=== PATIENT | male | born 1945 | race Caucasian/White ===

== ENCOUNTER 2017-02-15 20:57 | Inpatient (IN) | payer MEDICARE, OTHER ==
[~2017-02-15] VITALS: Ht 172.7 cm; Wt 87.0 kg
[~2017-02-15 20:57] MED LIST: ASPI81TA82 PO; DIAZ10TA PO; DOCU1CAP39 PO; ISOS30; LANTUS2P SC; LASI20TA PO; LISI-366 PO; METO100T PO; NITR0.4S SL; NOVOINJ SQ; OXYC5 PO; REME30TA PO; ROSU40 PO
[2017-02-15 21:10] VITALS: BP 152/74; PULSE 100; RESP 18; TEMP 98.5; O2SAT 96
--- NOTE | 2017-02-15 21:22 | PD ---
HPI Chief Complaint: GI Complaint Time Seen by Provider: 21:15 Travel History International Travel<30 days: No Contact w/Intl Traveler<30days: No Traveled to known affect area: No History of Present Illness HPI 71-year-old male presents the emergency department via ambulance with several day history of GI complaints including watery foul-smelling diarrhea, nausea and vomiting, and generalized abdominal pain. Patient has a history of hepatitis C, insulin-dependent diabetes, and "renal disease", as well as significant cardiac history in the past. Patient states he felt somewhat feverish this morning. He has increasing weakness and generalized malaise through the day today. Patient states he stopped taking his insulin yesterday as he has not been eating or drinking any significant amounts. He denies upper respiratory symptoms other than sore throat. He denies chest pain or shortness of breath. He states the last time he vomited was approximately 1 PM this afternoon. Patient states he cannot remember urinating in the past 2 days. Patient also reports a fall 10 days ago onto the sidewalk which he feels may be related to his current abdominal discomfort. He is allergic to gabapentin and lisinopril. 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) Asthma: Yes Autoimmune Disease: No Anxiety: Yes Depression: Yes Heart Rhythm Problems: No Cancer: No Cardiovascular Problems: Yes High Cholesterol: Yes Chemotherapy: No Chest Pain: Yes Congestive Heart Failure: Yes Diabetes: Yes Diminished Hearing: No Diverticulitis: Yes Endocrine: Yes Gastrointestinal Disorders: Yes GERD: No Genitourinary: Yes (RENAL INSUFF) Hepatitis: Yes (C) Hiatal Hernia: No Hypertension: Yes Immune Disorder: No Kidney Stones: Yes Musculoskeletal: Yes (CHRONIC BACK PAIN) Neurologic: Yes Psychiatric: Yes (PTSD) Reproductive: Yes (IRRECTILE DISFUNTION) Respiratory: Yes Radiation Therapy: No Renal Failure: No Past Surgical History Abdominal Surgery: No Cardiac Surgery: Yes (CABG 5 VESSEL 2000) Coronary Artery Bypass Graft: Yes (2000) Ear Surgery: No Endocrine Surgery: No Eye Surgery: No Genitourinary Surgery: No Gynecologic Surgery: No Neurologic Surgery: Yes (RT ARM) Oral Surgery: No Thoracic Surgery: Yes Other Surgery: Yes Social History Alcohol Use: No Tobacco Use: No Substance Use: No Allergies-Medications (Allergen,Severity, Reaction): Coded Allergies: Gabapentin (Verified Adverse Reaction, Intermediate, Cramping, 02/15/17) 10 yrs ago, Lisinopril (Verified Adverse Reaction, Intermediate, Cramping, 02/15/17) Reported Meds & Prescriptions Reported Meds & Active Scripts Active Reported Oxycodone Hydrochloride (Oxycodone HCl) 5 Mg Cap 5 Mg PO Q8HR Metoprolol Tartrate 100 Mg Tab 100 Mg PO BID Losartan (Losartan Potassium) 100 Mg Tab 100 Mg PO DAILY Ketoconazole Topical 2% Cream 1 Applic TOPICAL DAILY Lantus Inj (Insulin Glargine) 1,000 Unit/10 Ml Vial 40 Units SQ BID Novolog Flexpen Inj (Insulin Aspart) 300 Unit/3 Ml Pen 5 Units SQ DIRECTED Imiquimod Topical (Imiquimod) 5% Cream 1 Applic TOPICAL 3 TIMES PER WEEK Eq Gentle Lubricant (Hypromellose (Ophth)) 0.3 % Mike 1 Drop EACH EYE Q6HR Furosemide 20 Mg Tab 20 Mg PO DAILY Ergocalciferol 50,000 Unit Cap 50,000 Units PO Q30D Diphenhydramine (Diphenhydramine HCl) 25 Mg Cap 25 Mg PO HS PRN Aspirin 81 (Aspirin) 81 Mg Tabdr 81 Mg PO DAILY Proair Hfa 8.5 GM Inh (Albuterol Sulfate) 90 Mcg/Act Aer 2 Puff INH Q6H PRN 108 mcg/actuation Tanzeum 4-Pack Inj (Albiglutide) 30 Mg Pfpen 30 Mg SQ Q7D Review of Systems Except as stated in HPI: all other systems reviewed are Neg General / Constitutional: Positive: Fever (reported this morning.), Chills Eyes: No: Visual changes HENT: Positive: Sore Throat, No: Headaches, Vertigo, Lightheadedness, Rhinitis , Rhinorrhea, Congestion, Nosebleed, Neck Stiffness, Neck Pain, Gingival Bleeding, Dental Difficulties, Ear Discharge, Earache Cardiovascular: No: Chest Pain or Discomfort, Palpitations, Irregular Rhythm, Tachycardia, Diaphoresis, Edema Respiratory: No: Cough, Shortness of Breath, Wheezing Gastrointestinal: Positive: Nausea, Vomiting, Diarrhea, Abdominal Pain (see history present illness.), Loss of Appetite Genitourinary: Positive: Decreased Urinary Output, No: Dysuria Musculoskeletal: No: Pain Skin: No Rash Neurologic: Positive: Weakness (generalized.), No: Dizziness, Syncope, Focal Abnormalities, Coordination Problem Psychiatric: No: Depression Endocrine: No: Polydipsia Hematologic/Lymphatic: No: Easy Bruising Physical Exam Narrative GENERAL: Patient appears in no acute distress. He is alert and oriented 3. SKIN: Warm and dry. Normal color. Poor turgor with tenting present. No icterus present. HEAD: Atraumatic. Normocephalic. EYES: Pupils equal and round. No scleral icterus. No injection or drainage. ENT: No nasal bleeding or discharge. Mucous membranes pink and somewhat dry. Pharynx appears normal with no significant erythema or injection present. NECK: Trachea midline. No JVD. Supple and nontender. CARDIOVASCULAR: Borderline tachycardic rate and normal rhythm. RESPIRATORY: No accessory muscle use. Clear to auscultation. Breath sounds equal bilaterally. GASTROINTESTINAL: Abdomen soft, moderate generalized tenderness, nondistended. No guarding or point tenderness. Hepatic and splenic margins not palpable. MUSCULOSKELETAL: Extremities without clubbing, cyanosis, or edema. No obvious deformities. NEUROLOGICAL: Awake and alert. No obvious cranial nerve deficits. Motor grossly within normal limits. Five out of 5 muscle strength in the arms and legs. Normal speech. PSYCHIATRIC: Appropriate mood and affect; insight and judgment normal. Data Data Last Documented VS Vital Signs Date Time Temp Pulse Resp B/P Pulse Ox O2 Delivery O2 Flow Rate FiO2 02/15/17 23:12 95 16 124/80 95 Room Air 02/15/17 21:10 98.5 Orders Complete Blood Count With Diff (02/15/17 21:22) Comprehensive Metabolic Panel (02/15/17 21:22) Lipase (02/15/17 21:22) Lactic Acid (02/15/17 21:22) Prothrombin Time / Inr (Pt) (02/15/17 21:22) Act Partial Throm Time (Ptt) (02/15/17 21:22) Urinalysis - C+S If Indicated (02/15/17 21:22) Ct Abd/Pel W/O Iv Contrast (02/15/17 21:22) Iv Access Insert/Monitor (02/15/17 21:22) Ecg Monitoring (02/15/17 21:22) Oximetry (02/15/17 21:22) NPO (02/15/17 21:22) Ondansetron Inj (Zofran Inj) (02/15/17 21:30) Sodium Chlor 0.9% 1000 Ml Inj (Ns 1000 M (02/15/17 21:22) Sodium Chloride 0.9% Flush (Ns Flush) (02/15/17 21:30) Ckmb (Isoenzyme) Profile (02/15/17 21:22) Magnesium (Mg) (02/15/17 21:22) Troponin I (02/15/17 21:22) Chest, Single Ap (02/15/17 21:22) Oral Contrast - Adult (02/15/17 21:27) Diatrizoate Liq ( Gastroview Liq) (02/15/17 22:09) Ondansetron Inj (Zofran Inj) (02/15/17 23:30) Piperacil-Tazo 3.375 Gm Premix (Zosyn 3. (02/16/17 00:30) Admit Order (Ed Use Only) (02/16/17 00:41) Labs Laboratory Tests Test 02/15/17 02/15/17 21:00 21:46 White Blood Count 6.5 TH/MM3 Red Blood Count 4.16 MIL/MM3 Hemoglobin 12.7 GM/DL Hematocrit 37.8 % Mean Corpuscular Volume 90.8 FL Mean Corpuscular Hemoglobin 30.6 PG Mean Corpuscular Hemoglobin 33.7 % Concent Red Cell Distribution Width 13.1 % Platelet Count 115 TH/MM3 Mean Platelet Volume 9.8 FL Neutrophils (%) (Auto) 70.7 % Lymphocytes (%) (Auto) 16.4 % Monocytes (%) (Auto) 12.8 % Eosinophils (%) (Auto) 0.0 % Basophils (%) (Auto) 0.1 % Neutrophils # (Auto) 4.6 TH/MM3 Lymphocytes # (Auto) 1.1 TH/MM3 Monocytes # (Auto) 0.8 TH/MM3 Eosinophils # (Auto) 0.0 TH/MM3 Basophils # (Auto) 0.0 TH/MM3 CBC Comment DIFF FINAL Differential Comment Prothrombin Time 11.2 SEC Prothromb Time International 1.0 RATIO Ratio Activated Partial 28.2 SEC Thromboplast Time Sodium Level 135 MEQ/L Potassium Level 4.1 MEQ/L Chloride Level 100 MEQ/L Carbon Dioxide Level 22.8 MEQ/L Anion Gap 12 MEQ/L Blood Urea Nitrogen 33 MG/DL Creatinine 1.90 MG/DL Estimat Glomerular Filtration 35 ML/MIN Rate Random Glucose 268 MG/DL Calcium Level 8.3 MG/DL Magnesium Level 1.8 MG/DL Total Bilirubin 0.8 MG/DL Aspartate Amino Transf 23 U/L (AST/SGOT) Alanine Aminotransferase 18 U/L (ALT/SGPT) Alkaline Phosphatase 108 U/L Total Creatine Kinase 81 U/L Troponin I 0.04 NG/ML Total Protein 7.6 GM/DL Albumin 3.3 GM/DL Lipase 80 U/L Lactic Acid Level 1.9 mmol/L MDM Medical Decision Making Medical Screen Exam Complete: Yes Emergency Medical Condition: Yes Differential Diagnosis Gastroenteritis. Dehydration. Renal insufficiency. Hepatic issue. Nausea and vomiting. Diarrhea. Narrative Course Patient appears medically stable at time of exam. EKG shows sinus rhythm with occasional super ventricular premature complexes. This is reviewed with Dr. Maddox. Labs ordered include a CBC, CMP, lactic acid, cardiac profile, and urinalysis. IV access is obtained patient is given 2 L normal saline bolus. Abdominal CT is ordered without IV contrast is ordered. Chest x-ray shows diffuse infiltrates in the left lower lobe per radiologist. CBC shows no significant leukocytosis, but mild anemia. 2300 hrs, care of the patient is turned over to Dr. Maddox for final disposition. Condition: Stable Graeme Dalal Feb 15, 2017 21:22
[2017-02-15] MEDS ORDERED: ONDANSETRON HCL 4 MG/2 ML VIAL IVP ONE (21:30)
[2017-02-15] MEDS ORDERED: LOSA100T PO (21:55)
[2017-02-15] MEDS ORDERED: KETO2CRE TOPICAL (21:55)
[2017-02-15] MEDS ORDERED: LANTUS2P SQ (21:55)
[2017-02-15] MEDS ORDERED: [UNRECOGNIZED DRUG - OTHER] EACH EYE (21:55)
[2017-02-15] MEDS ORDERED: ALBUAER3 INH (21:55)
[2017-02-15] MEDS ORDERED: FURO20TA PO (21:55)
[2017-02-15] MEDS ORDERED: ERGO1CAP30 PO (21:55)
[2017-02-15] MEDS ORDERED: NOVOINJ3 SQ (21:55)
[2017-02-15] MEDS ORDERED: OXYC1CAP8 PO (21:55)
[2017-02-15] MEDS ORDERED: ASPI-110 PO (21:55)
[2017-02-15] MEDS ORDERED: METO100T PO (21:55)
[2017-02-15] MEDS ORDERED: ALBI1INJ SQ (21:55)
[2017-02-15] MEDS ORDERED: DIPH25CA PO (21:55)
[2017-02-15] MEDS ORDERED: IMIQ5CRE9 TOPICAL (21:55)
[2017-02-15] MEDS: SODIUM CHLORIDE 0.9% FLUSH 10 ML FLUSH IV FLUSH PRN ×2 (21:58→23:36)
[2017-02-15] MEDS: SODIUM CHLOR 0.9% 1000 ML INJ 1,000 ML IV SCH ×2 (21:58→22:42)
[2017-02-15 22:09] LABS: AUTOMATED NEUTROPHIL # 4.6 TH/MM3 (1.8-7.7); BASOPHIL % 0.1 % (0.0-2.0); HEMATOCRIT 37.8 % (39.0-51.0); HEMO FLAGS DIFF FINAL; LYMPH % 16.4 % (9.0-44.0); LYMPHOCYTE # 1.1 TH/MM3 (1.0-4.8); MEAN CELL VOLUME 90.8 FL (80.0-100.0); MEAN CORPUSCULAR HEMOGLOBIN 30.6 PG (27.0-34.0); MEAN CORPUSCULAR HGB CONC 33.7 % (32.0-36.0); MONO % 12.8 % (0.0-8.0); NEUT % 70.7 % (16.0-70.0); PLATELET COUNT 115 TH/MM3 (150-450); RED BLOOD COUNT 4.16 MIL/MM3 (4.50-5.90); RED CELL DISTRIBUTION WIDTH 13.1 % (11.6-17.2); WHITE BLOOD COUNT 6.5 TH/MM3 (4.0-11.0)
[2017-02-15] MEDS ORDERED: DIATRIZOATE MEGLUM/DIATRIZOATE SOD 9 ML CUP ONE (22:09)
[2017-02-15 22:29] LABS: APTT (PATIENT) 28.2 SEC (24.3-30.1); PROTHROMBIN TIME - PATIENT 11.2 SEC (9.8-11.6)
--- NOTE | 2017-02-15 22:34 | RADRPT ---
EXAM DATE/TIME: 02/15/2017 21:44 [facility] COMPARISON: CHEST SINGLE AP, September 07, 2014, 9:45. INDICATIONS : Chest pain. MEDICAL HISTORY : Cardiovascular disease. SURGICAL HISTORY : CABG. ENCOUNTER: Initial ACUITY: 1 day PAIN SCORE: 7/10 LOCATION: Bilateral chest FINDINGS: Ill-defined opacity in the left lower lung and loss of delineation of the lateral one third of the le ft hemidiaphragm suggests consolidative infiltrate. The right lung is clear. Evidence of prior medi an sternotomy with intact sternal wire sutures. CONCLUSION: Probable consolidative infiltrate lower lateral left lung. Anjum Lincoln MD on February 15, 2017 at 22:32 Board Certified Radiologist. This report was verified electronically.
[2017-02-15 22:41] LABS: ALT (GPT) 18 U/L (12-78); ANION GAP 12 MEQ/L (5-15); AST (GOT) 23 U/L (15-37); BICARBONATE 22.8 MEQ/L (21.0-32.0); BLOOD UREA NITROGEN 33 MG/DL (7-18); CHLORIDE 100 MEQ/L (98-107); GLOMERULAR FILTRATION RATE 35 ML/MIN (>89); MAGNESIUM 1.8 MG/DL (1.5-2.5); POTASSIUM 4.1 MEQ/L (3.5-5.1); SODIUM (NA) 135 MEQ/L (136-145)
[2017-02-15 22:45] LABS: ALKALINE PHOSPHATASE 108 U/L (45-117); TOTAL BILIRUBIN ADULT 0.8 MG/DL (0.2-1.0)
[2017-02-15 23:10] VITALS: RESP 18; O2SAT 97
[2017-02-15 23:12] VITALS: BP 124/80; PULSE 95; RESP 16; O2SAT 95
[2017-02-15 23:17] LABS: CREATINE KINASE 81 U/L (39-308)
[2017-02-15] MEDS ORDERED: ONDANSETRON HCL 4 MG/2 ML VIAL IV PUSH ONE (23:30)
--- NOTE | 2017-02-16 00:03 | RADRPT ---
EXAM DATE/TIME: 02/15/2017 23:37 [facility] COMPARISON: No previous studies available for comparison. INDICATIONS : Diffuse abdominal pain following fall 10 days ago. Vomiting today. ORAL CONTRAST: Prescribed oral contrast ingested. RADIATION DOSE: 12.40 CTDIvol (mGy) MEDICAL HISTORY : Congestive heart failure. Hypertension. Hepatitis C.Diabetes. Renal disease. SURGICAL HISTORY : CABG ENCOUNTER: Initial ACUITY: 1 week PAIN SCALE: 6/10 LOCATION: Bilateral abdomen TECHNIQUE: Volumetric scanning of the abdomen and pelvis was performed. Using automated exposure control and ad justment of the mA and/or kV according to patient size, radiation dose was kept as low as reasonably achievable to obtain optimal diagnostic quality images. FINDINGS: LOWER LUNGS: There is respiratory motion artifact. Atelectasis is present bilaterally. There is coronary artery ca lcification. LIVER: The liver demonstrates a mildly nodular contour. Density is normal and no lesion is seen. There is n o dilation of the biliary tree. No calcified gallstones. SPLEEN: Mildly enlarged measuring 13.1 cm in length. PANCREAS: Within normal limits. KIDNEYS: Normal in size and shape. There is no mass, stone, or hydronephrosis. ADRENAL GLANDS: Within normal limits. VASCULAR: There is no aortic aneurysm. There is severe atherosclerotic disease. BOWEL/MESENTERY: There is thickening of the duodenal bulb and proximal second portion of the duodenum. No perienteric inflammation is appreciated. The remaining small bowel and colon demonstrates no acute finding. There is no free intraperitoneal air or fluid. ABDOMINAL WALL: Within normal limits. RETROPERITONEUM: There is no lymphadenopathy. BLADDER: No wall thickening or mass. REPRODUCTIVE: Within normal limits. INGUINAL: There is no lymphadenopathy or hernia. MUSCULOSKELETAL: Patient is post median sternotomy. There are degenerative changes of the lumbar spine. CONCLUSION: 1. Wall thickening of the duodenal bulb and second portion of the duodenum without significant perien teric inflammation appreciated. Although nonspecific this finding could indicate inflammation of the duodenum. 2. Liver contour suspicious for cirrhosis. There is also mild splenomegaly. 3. Severe atherosclerotic disease and coronary artery calcification. Jorge Sahu MD on February 15, 2017 at 23:57 Board Certified Radiologist. This report was verified electronically.
[2017-02-16] MEDS ORDERED: PIPERACIL-TAZO 3.375 GM PREMIX 50 ML IV ONE (00:30)
[2017-02-16] MEDS ORDERED: ALBUTEROL SULFATE 90 MCG/ACT HFA 18 GM INHALER INH PRN (01:00)
[2017-02-16] MEDS ORDERED: SODIUM CHLORIDE 0.9% FLUSH 10 ML FLUSH IV FLUSH PRN (01:00)
[2017-02-16] MEDS ORDERED: ACETAMINOPHEN 325 MG TAB PO PRN (01:00)
[2017-02-16] MEDS ORDERED: ACETAMINOPHEN/HYDROcodone 325 MG/5 MG TAB PO PRN (01:00)
[2017-02-16] MEDS ORDERED: Vancomycin Consult Pharmacy 1 EA OTHER SCH (01:00)
[2017-02-16] MEDS ORDERED: BISACODYL 10 MG SUPP RECTAL PRN (01:00)
[2017-02-16] MEDS: SODIUM CHLOR 0.9% 1000 ML INJ 1,000 ML IV SCH ×3 (01:03→22:04)
--- NOTE | 2017-02-16 01:38 | PD ---
Data Data Last Documented VS Vital Signs Date Time Temp Pulse Resp B/P Pulse Ox O2 Delivery O2 Flow Rate FiO2 02/15/17 23:12 95 16 124/80 95 Room Air 02/15/17 21:10 98.5 Orders Complete Blood Count With Diff (02/15/17 21:22) Comprehensive Metabolic Panel (02/15/17 21:22) Lipase (02/15/17 21:22) Lactic Acid (02/15/17 21:22) Prothrombin Time / Inr (Pt) (02/15/17 21:22) Act Partial Throm Time (Ptt) (02/15/17 21:22) Urinalysis - C+S If Indicated (02/15/17 21:22) Ct Abd/Pel W/O Iv Contrast (02/15/17 21:22) Iv Access Insert/Monitor (02/15/17 21:22) Ecg Monitoring (02/15/17 21:22) Oximetry (02/15/17 21:22) NPO (02/15/17 21:22) Ondansetron Inj (Zofran Inj) (02/15/17 21:30) Sodium Chlor 0.9% 1000 Ml Inj (Ns 1000 M (02/15/17 21:22) Sodium Chloride 0.9% Flush (Ns Flush) (02/15/17 21:30) Ckmb (Isoenzyme) Profile (02/15/17 21:22) Magnesium (Mg) (02/15/17 21:22) Troponin I (02/15/17 21:22) Chest, Single Ap (02/15/17 21:22) Oral Contrast - Adult (02/15/17 21:27) Diatrizoate Liq ( Gastroview Liq) (02/15/17 22:09) Ondansetron Inj (Zofran Inj) (02/15/17 23:30) Piperacil-Tazo 3.375 Gm Premix (Zosyn 3. (02/16/17 00:30) Admit Order (Ed Use Only) (02/16/17 00:41) Labs Laboratory Tests Test 02/15/17 02/15/17 21:00 21:46 White Blood Count 6.5 TH/MM3 Red Blood Count 4.16 MIL/MM3 Hemoglobin 12.7 GM/DL Hematocrit 37.8 % Mean Corpuscular Volume 90.8 FL Mean Corpuscular Hemoglobin 30.6 PG Mean Corpuscular Hemoglobin 33.7 % Concent Red Cell Distribution Width 13.1 % Platelet Count 115 TH/MM3 Mean Platelet Volume 9.8 FL Neutrophils (%) (Auto) 70.7 % Lymphocytes (%) (Auto) 16.4 % Monocytes (%) (Auto) 12.8 % Eosinophils (%) (Auto) 0.0 % Basophils (%) (Auto) 0.1 % Neutrophils # (Auto) 4.6 TH/MM3 Lymphocytes # (Auto) 1.1 TH/MM3 Monocytes # (Auto) 0.8 TH/MM3 Eosinophils # (Auto) 0.0 TH/MM3 Basophils # (Auto) 0.0 TH/MM3 CBC Comment DIFF FINAL Differential Comment Prothrombin Time 11.2 SEC Prothromb Time International 1.0 RATIO Ratio Activated Partial 28.2 SEC Thromboplast Time Sodium Level 135 MEQ/L Potassium Level 4.1 MEQ/L Chloride Level 100 MEQ/L Carbon Dioxide Level 22.8 MEQ/L Anion Gap 12 MEQ/L Blood Urea Nitrogen 33 MG/DL Creatinine 1.90 MG/DL Estimat Glomerular Filtration 35 ML/MIN Rate Random Glucose 268 MG/DL Calcium Level 8.3 MG/DL Magnesium Level 1.8 MG/DL Total Bilirubin 0.8 MG/DL Aspartate Amino Transf 23 U/L (AST/SGOT) Alanine Aminotransferase 18 U/L (ALT/SGPT) Alkaline Phosphatase 108 U/L Total Creatine Kinase 81 U/L Troponin I 0.04 NG/ML Total Protein 7.6 GM/DL Albumin 3.3 GM/DL Lipase 80 U/L Lactic Acid Level 1.9 mmol/L [facility] Medical Record Reviewed: Yes Supervised Visit with VASU: Yes Narrative Course I, Dr. Maddox, have reviewed the advance practice practitioner's documentation and am in agreement, met with the patient face to face, made the diagnosis, and the medical decision making was done by me. *My assessment and Findings: CBC & BMP Diagram 02/15/17 21:00 LA 1.9 LFTs normal Lipase 3.3 Tn 0.04 INR 1.0 Last 24 hours Impressions Chest X-Ray 02/15/172121 Signed Impressions: Service Date/Time: Wednesday, February 15, 2017 21:44 - CONCLUSION: Probable consolidative infiltrate lower lateral left lung. Anjum Lincoln MD Abdomen/Pelvis CT 02/15/172121 Signed Impressions: Service Date/Time: Wednesday, February 15, 2017 23:37 - CONCLUSION: 1. Wall thickening of the duodenal bulb and second portion of the duodenum without significant perienteric inflammation appreciated. Although nonspecific this finding could indicate inflammation of the duodenum. 2. Liver contour suspicious for cirrhosis. There is also mild splenomegaly. 3. Severe atherosclerotic disease and coronary artery calcification. Jorge Sahu MD Admission for IV antibiotics and IV fluids. Discussed with Dr. Mars. Patient resting comfortably at time of reassessment at approx 1230AM prior to admission. Zosyn started. Diagnosis Primary Impression: Duodenitis Additional Impression: PNA (pneumonia) Qualified Code: J18.1 - Pneumonia of left lower lobe due to infectious organism Admitting Information Admitting Physician Requests: Admit Condition: Stable Suhail Maddox MD Feb 16, 2017 01:38
[2017-02-16] MEDS ORDERED: VANCOMYCIN INJ 1,400 MG in SODIUM CHLORID 0.9% 500 ML INJ 500 ML IV SCH (02:00)
--- NOTE | 2017-02-16 03:15 | HHI.HP ---
HPI Service [facility] Primary Care Physician [facility] Admission Diagnosis Duodenitis; L PNA Diagnoses: (1) Duodenitis Diagnosis: Principal (2) PNA (pneumonia) Diagnosis: Principal (3) COPD (chronic obstructive pulmonary disease) Diagnosis: Principal (4) Renal insufficiency Diagnosis: Principal (5) DM (diabetes mellitus) Diagnosis: Principal Travel History International Travel<30 Days: No Contact w/Intl Traveler <30 Da: No Traveled to Known Affected Are: No History of Present Illness This is a 71-year-old male with a PMH of Anxiety, Depression, HTN, Hyperlipidemia, Hepatitis C, CHF (Echo 05/21/12 w/ EF 50-55%), COPD and DM who presents to the ER with complaints of abdominal pain, nausea, vomiting and nonbloody diarrhea x2 days. Decreased PO intake secondary to symptoms. Reports subjective fevers/chills. Denies sick contacts. On arrival, BP 152/74 , HR 100, O2 sat 96% on RA, Afebrile. WBC normal. Platelets 115, previously 149 on 09/07/14. Creatinine 1.90, previously 1.9 and 09/07/14. Lactic Acid 1.9. LFTs normal. Troponin 0.04. INR 1.0. CXR with likely consolidation left lower lobe. CT Abd/Pelvis w/ wall thickening of duodenal bulb and second portion of duodenum, cirrhosis, mild splenomegaly, coronary artery calcification. S/p Zosyn IV in ER. Review of Systems Except as stated in HPI: all other systems reviewed are Neg ROS: 14 point review of systems otherwise negative. Past Family Social History Past Medical History PMH: Anxiety, Depression, HTN, Hyperlipidemia, Hepatitis C, CHF (Echo 05/21/12 w / EF 50-55%), COPD and DM Past Surgical History PAST SURGICAL HISTORY: CABG, Right Arm Surgery Allergies: Coded Allergies: Gabapentin (Verified Adverse Reaction, Intermediate, Cramping, 02/15/17) 10 yrs ago, Lisinopril (Verified Adverse Reaction, Intermediate, Cramping, 02/15/17) Family History PAST FAMILY HISTORY: Reviewed. No h/o DM or CAD Social History PAST SOCIAL HISTORY: Negative for alcohol, tobacco or drugs. Physical Exam Vital Signs Vital Signs Date Time Temp Pulse Resp B/P Pulse Ox O2 Delivery O2 Flow Rate FiO2 02/15/17 23:12 95 16 124/80 95 Room Air 02/15/17 23:10 18 97 Room Air 02/15/17 21:10 98.5 100 18 152/74 96 Physical Exam PE: GENERAL: Elderly white male in no acute distress. HEENT: PERRLA, EOMI. No scleral icterus or conjunctival pallor. No lid lag or facial droop. CARDIOVASCULAR: Regular rate and rhythm. No obvious murmurs to auscultation. No chest tenderness to palpation. RESPIRATORY: No obvious rhonchi or wheezing. Clear to auscultation. Breath sounds equal bilaterally. GASTROINTESTINAL: Abdomen soft, mild generalized tenderness to palpation, nondistended. BS normal. MUSCULOSKELETAL: Extremities without clubbing, cyanosis, or edema. No obvious deformities. NEUROLOGICAL: Awake, alert and oriented x4. No focal neurologic deficits. Moving both upper and lower extremities spontaneously. Laboratory Laboratory Tests Test 02/15/17 02/15/17 21:00 21:46 White Blood Count 6.5 Red Blood Count 4.16 Hemoglobin 12.7 Hematocrit 37.8 Mean Corpuscular Volume 90.8 Mean Corpuscular Hemoglobin 30.6 Mean Corpuscular Hemoglobin 33.7 Concent Red Cell Distribution Width 13.1 Platelet Count 115 Mean Platelet Volume 9.8 Neutrophils (%) (Auto) 70.7 Lymphocytes (%) (Auto) 16.4 Monocytes (%) (Auto) 12.8 Eosinophils (%) (Auto) 0.0 Basophils (%) (Auto) 0.1 Neutrophils # (Auto) 4.6 Lymphocytes # (Auto) 1.1 Monocytes # (Auto) 0.8 Eosinophils # (Auto) 0.0 Basophils # (Auto) 0.0 CBC Comment DIFF FINAL Differential Comment Prothrombin Time 11.2 Prothromb Time International 1.0 Ratio Activated Partial 28.2 Thromboplast Time Sodium Level 135 Potassium Level 4.1 Chloride Level 100 Carbon Dioxide Level 22.8 Anion Gap 12 Blood Urea Nitrogen 33 Creatinine 1.90 Estimat Glomerular Filtration 35 Rate Random Glucose 268 Calcium Level 8.3 Magnesium Level 1.8 Total Bilirubin 0.8 Aspartate Amino Transf 23 (AST/SGOT) Alanine Aminotransferase 18 (ALT/SGPT) Alkaline Phosphatase 108 Total Creatine Kinase 81 Troponin I 0.04 Total Protein 7.6 Albumin 3.3 Lipase 80 Lactic Acid Level 1.9 Result Diagram: 02/15/17209902/15/172099 Assessment and Plan Problem List: (1) Duodenitis ICD Code: K29.80 Status: Acute (2) PNA (pneumonia) ICD Code: J18.9 Status: Acute (3) COPD (chronic obstructive pulmonary disease) ICD Code: J44.9 Status: Acute (4) Renal insufficiency ICD Code: N28.9 Status: Acute (5) DM (diabetes mellitus) ICD Code: E11.9 Status: Acute Assessment and Plan A/P: 1. Duodenitis: acute onset of abdominal pain, nausea/vomiting/diarrhea x2 days w/ decreased PO intake. CT Abd/Pelvis w/ wall thickening of duodenal bald and second portion of duodenum, images reviewed by me. S/p Zosyn and Zofran in ER w/ some improvement. Continue w/ IV Abx, analgesics/antiemetics as needed. IVF for hydration. Diet as tolerated. 2. PNA: CXR w/ LLL infiltrate, images reviewed by me. Continue w/ IV Abx, DuoNeb prn. 3. COPD: Chronic Respiratory Failure. Stable. DuoNeb prn 4. Renal Insufficiency: Chronic. Creatinine 1.90, previously 1.98 on . IVF, repeat labs in a.m. 5. DM: Sliding scale Accu-Cheks. Hold home Lantus until taking adequate PO. Check Hgb A1c. 6. DVT Prophylaxis: SCD/Teds. 7. Social work for d/c planning as needed. 8. Case discussed w/ ER physician at length. Physician Certification 2 Midnight Certification Type: Admission for Inpatient Services Order for Inpatient Services The services are ordered in accordance with Medicare regulations or non- Medicare payer requirements, as applicable. In the case of services not specified as inpatient-only, they are appropriately provided as inpatient services in accordance with the 2-midnight benchmark. Estimated LOS (days): 2 days is the estimated time the patient will need to remain in the hospital, assuming treatment plan goals are met and no additional complications. Post-Hospital Plan: Not yet determined Dorcas Bey MD Feb 16, 2017 03:15
[2017-02-16 04:00] VITALS: BP 171/74; PULSE 85; RESP 20; TEMP 97.8; O2SAT 97
[2017-02-16] MEDS: ONDANSETRON HCL 4 MG/2 ML VIAL IVP PRN ×3 (04:34→22:10)
[2017-02-16] MEDS: PIPERACIL-TAZO 3.375 GM PREMIX 50 ML IV SCH ×3 (06:00→16:12)
[2017-02-16] MEDS: INSULIN ASPART SUPPLEMENTAL SCALE SQ SCH ×4 (07:44→22:04)
[2017-02-16] MEDS: METOPROLOL TARTRATE 100 MG TAB PO SCH ×2 (08:57→22:03)
[2017-02-16] MEDS: SODIUM CHLORIDE 0.9% FLUSH 10 ML FLUSH IV FLUSH SCH ×2 (08:57→22:03)
[2017-02-16 08:58] VITALS: BP 183/74; PULSE 89; RESP 18; TEMP 97.4; O2SAT 97
[2017-02-16] MEDS: MORPHINE SULFATE 4 MG/ML INJ IV PRN ×3 (09:17→22:11)
--- NOTE | 2017-02-16 10:36 | HHI.PR ---
Subjective Remarks No acute events overnight. Afebrile, vital signs stable. Hypertensive overnight to 183/74. Patient states that he had diarrhea all night with last episode being at 6 AM. He states he is feeling better with pain medication. He denies cough/shortness of breath. Objective Vitals Vital Signs Date Time Temp Pulse Resp B/P Pulse Ox O2 Delivery O2 Flow Rate FiO2 02/16/17 08:58 97.4 89 18 183/74 97 02/16/17 04:00 97.8 85 20 171/74 97 02/15/17 23:12 95 16 124/80 95 Room Air 02/15/17 23:10 18 97 Room Air 02/15/17 21:10 98.5 100 18 152/74 96 I/O 02/15/17 02/15/17 02/15/17 02/16/17 02/16/17 02/16/17 07:00 15:00 23:00 07:00 15:00 23:00 # Voids 1 # Bowel Movements 1 Result Diagram: 02/15/17 2100 02/15/17 2100 Objective Remarks Gen.: No acute distress Head: Normocephalic. Atraumatic. EENT: Pupils equal round and reactive to light. Nose without drainage. Airway intact. Throat without injection. Cardiovascular: Regular rate and rhythm. No murmurs, rubs or gallops. Respiratory: Lungs clear to auscultation bilaterally. No wheezes or rhonchi. Abdomen: Soft, nontender, nondistended. No peritoneal signs. Musculoskeletal: No gross deformities. No edema. Skin: No obvious rashes or erythema. Neuro: Sensory and motor grossly intact. Cranial nerves II through XII grossly intact. Psych: Appropriate mood and affect A/P Problem List: (1) Duodenitis ICD Code: K29.80 Status: Acute (2) PNA (pneumonia) ICD Code: J18.9 Status: Acute (3) COPD (chronic obstructive pulmonary disease) ICD Code: J44.9 Status: Acute (4) Renal insufficiency ICD Code: N28.9 Status: Acute (5) DM (diabetes mellitus) ICD Code: E11.9 Status: Acute Assessment and Plan 1. Duodenitis: acute onset of abdominal pain, nausea/vomiting/diarrhea x2 days w/ decreased PO intake. CT Abd/Pelvis w/ wall thickening of duodenal bald and second portion of duodenum. S/p Zosyn and Zofran in ER w/ some improvement. Continue w/ IV Abx, analgesics/antiemetics as needed. IVF for hydration. Advance to clear liquid diet. 2. PNA: CXR w/ LLL infiltrate. Continue w/ IV Abx, DuoNeb prn. 3. COPD: Chronic Respiratory Failure. Stable. DuoNeb prn 4. Renal Insufficiency: Chronic. Creatinine 1.90, previously 1.98 on . IVF, repeat labs in a.m. 5. DM: Sliding scale Accu-Cheks. Hold home Lantus until taking adequate PO. Check Hgb A1c. 6. CHF: Patient sees logistic manager at the [place]. Last echo was 8 months ago, he does not remember his ejection fraction. Per patient, logistic manager states that he is doing well from a cardiac standpoint. 7. DVT Prophylaxis: SCD/Teds. 8. Social work for d/c planning as needed. Problem Qualifiers (1) PNA (pneumonia): Qualified Code: J18.1 - Pneumonia of left lower lobe due to infectious organism Ailyn Bhardwaj MD R3 Feb 16, 2017 10:36
[2017-02-16 12:53] VITALS: BP 173/79; PULSE 68; RESP 18; TEMP 96.8; O2SAT 97
[2017-02-16 13:50] VITALS: BP 156/66
[2017-02-16] MEDS: BENZOCAINE-MENTHOL (SUGAR FREE) 15 MG-3.6 MG LOZENGE BUCCAL PRN ×2 (16:12→22:04)
[2017-02-16 17:53] VITALS: BP 153/77; PULSE 70; RESP 18; TEMP 97.4; O2SAT 95
[2017-02-16 20:52] VITALS: BP 147/74; PULSE 81; RESP 20; TEMP 98.8; O2SAT 95
--- NOTE | 2017-02-16 21:06 | EKG ---
Date Performed: 02/15/2017 Time Performed: 21:10:57 PTAGE: 71 years EKG: Sinus rhythm WITH OCCASIONAL SUPRAVENTRICULAR PREMATURE COMPLEXES POSSIBLE ANTERIOR MYOCARDIAL INFARCTION ABNORMA L ECG INTERPRETATION BASED ON A DEFAULT AGE OF 40 YEARS PREVIOUS TRACING : 09/07/2014 10.08 DOCTOR: Polo Forde Interpretating Date/Time 02/16/2017 21:04:02
[2017-02-16] MEDS: TEMAZEPAM 7.5 MG CAP PO PRN (22:04)
[2017-02-17] VITALS: BP 100/57; PULSE 59; RESP 20; TEMP 98; O2SAT 97
[2017-02-17] MEDS: PIPERACIL-TAZO 3.375 GM PREMIX 50 ML IV SCH ×4 (00:15→17:48)
[2017-02-17] MEDS: VANCOMYCIN INJ 1,400 MG in SODIUM CHLORID 0.9% 500 ML INJ 500 ML IV SCH (01:35)
[2017-02-17 04:00] VITALS: BP 121/48; PULSE 64; RESP 20; TEMP 98.4; O2SAT 95
[2017-02-17] MEDS: MORPHINE SULFATE 4 MG/ML INJ IV PRN ×4 (05:50→22:59)
[2017-02-17] MEDS: ONDANSETRON HCL 4 MG/2 ML VIAL IVP PRN ×4 (06:07→23:01)
[2017-02-17] MEDS: INSULIN ASPART SUPPLEMENTAL SCALE SQ SCH ×4 (06:11→21:39)
[2017-02-17 08:00] VITALS: BP 126/54; PULSE 63; RESP 19; TEMP 97.3; O2SAT 96
[2017-02-17 08:05] LABS: AUTOMATED NEUTROPHIL # 3.4 TH/MM3 (1.8-7.7); BASOPHIL % 0.1 % (0.0-2.0); EOSINOPHIL # 0.1 TH/MM3 (0-0.4); HEMATOCRIT 35.2 % (39.0-51.0); LYMPH % 21.3 % (9.0-44.0); LYMPHOCYTE # 1.1 TH/MM3 (1.0-4.8); MEAN CELL VOLUME 91.8 FL (80.0-100.0); MEAN CORPUSCULAR HEMOGLOBIN 29.7 PG (27.0-34.0); MEAN CORPUSCULAR HGB CONC 32.4 % (32.0-36.0); MONO % 10.4 % (0.0-8.0); NEUT % 67.2 % (16.0-70.0); PLATELET COUNT 81 TH/MM3 (150-450); RED BLOOD COUNT 3.84 MIL/MM3 (4.50-5.90); WHITE BLOOD COUNT 5.1 TH/MM3 (4.0-11.0)
[2017-02-17 08:14] LABS: HEMO FLAGS AUTO DIFF
[2017-02-17 08:40] LABS: ALKALINE PHOSPHATASE 79 U/L (45-117); ALT (GPT) 20 U/L (12-78); ANION GAP 10 MEQ/L (5-15); AST (GOT) 32 U/L (15-37); BICARBONATE 22.1 MEQ/L (21.0-32.0); BLOOD UREA NITROGEN 18 MG/DL (7-18); CHLORIDE 109 MEQ/L (98-107); GLOMERULAR FILTRATION RATE 43 ML/MIN (>89); POTASSIUM 4.2 MEQ/L (3.5-5.1); SODIUM (NA) 141 MEQ/L (136-145); TOTAL BILIRUBIN ADULT 0.8 MG/DL (0.2-1.0)
[2017-02-17] MEDS: METOPROLOL TARTRATE 100 MG TAB PO SCH ×2 (08:57→21:33)
[2017-02-17] MEDS: SODIUM CHLORIDE 0.9% FLUSH 10 ML FLUSH IV FLUSH SCH ×2 (08:57→21:40)
[2017-02-17 09:06] LABS: PLATELET ESTIMATE SMEAR LOW (NORMAL); PLATELET MORPHOLOGY NORMAL (NORMAL); SCAN/DIFF AUTO DIFF CONFIRMED
[2017-02-17 12:00] VITALS: BP 120/55; PULSE 63; RESP 19; TEMP 97.6; O2SAT 96
--- NOTE | 2017-02-17 13:19 | HHI.PR ---
Subjective Remarks This is a pleasant 71 y/o Male who has Anxiety, Depression, Hyperlipidemia, Hepatitis C, CHF (Echo 05/21/12 w/ EF 50-55%), COPD and DM who presents to the ER with complaints of abdominal pain, nausea, vomiting and nonbloody diarrhea x2 days. Decreased PO intake secondary to symptoms. has Chronic Kidney disease, CXR with likely consolidation left lower lobe. CT Abd/Pelvis w/ wall thickening of duodenal bulb and second portion of duodenum , cirrhosis, mild splenomegaly, coronary artery calcification. Given Vancomycin and Zosyn, No blood cultures taken, patient stable afebrile, seen in his bedroom, continue with loose stools, will start on Questran, we are treating as Colitis, will follow and if in am tomorrow continue with symptomatology will ask for GI specialist consult. Objective Vital Signs Date Time Temp Pulse Resp B/P Pulse Ox O2 Delivery O2 Flow Rate FiO2 02/17/17 12:00 97.6 63 19 120/55 96 02/17/17 08:00 97.3 63 19 126/54 96 02/17/17 05:58 18 02/17/17 04:00 98.4 64 20 121/48 95 02/17/17 00:00 98.0 59 20 100/57 97 02/16/17 20:52 98.8 81 20 147/74 95 02/16/17 17:53 97.4 70 18 153/77 95 02/16/17 13:50 156/66 I/O 02/16/17 02/16/17 02/16/17 02/17/17 02/17/17 02/17/17 07:00 15:00 23:00 07:00 15:00 23:00 Intake Total 840 ml 1494 ml 750 ml 0 ml Output Total 1 ml Balance 840 ml 1493 ml 750 ml 0 ml Intake Oral 840 ml 0 ml IV Total 1494 ml 750 ml Output Urine Total 1 ml # Voids 1 3 2 # Bowel Movements 1 1 1 1 Result Diagram: 02/17/1772302/17/17723 Imaging Last Impressions Chest X-Ray 02/15/172121 Signed Impressions: Service Date/Time: Wednesday, February 15, 2017 21:44 - CONCLUSION: Probable consolidative infiltrate lower lateral left lung. Anjum Lincoln MD Abdomen/Pelvis CT 02/15/172121 Signed Impressions: Service Date/Time: Wednesday, February 15, 2017 23:37 - CONCLUSION: 1. Wall thickening of the duodenal bulb and second portion of the duodenum without significant perienteric inflammation appreciated. Although nonspecific this finding could indicate inflammation of the duodenum. 2. Liver contour suspicious for cirrhosis. There is also mild splenomegaly. 3. Severe atherosclerotic disease and coronary artery calcification. Jorge Sahu MD Procedures No procedures performed. Other Results Laboratory Tests Test 02/15/17 02/15/17 02/17/17 21:00 21:46 07:24 Prothrombin Time 11.2 SEC Prothromb Time International 1.0 RATIO Ratio Activated Partial 28.2 SEC Thromboplast Time Magnesium Level 1.8 MG/DL Total Creatine Kinase 81 U/L Troponin I 0.04 NG/ML Lipase 80 U/L Lactic Acid Level 1.9 mmol/L White Blood Count 5.1 TH/MM3 Red Blood Count 3.84 MIL/MM3 Hemoglobin 11.4 GM/DL Hematocrit 35.2 % Mean Corpuscular Volume 91.8 FL Mean Corpuscular Hemoglobin 29.7 PG Mean Corpuscular Hemoglobin 32.4 % Concent Red Cell Distribution Width 13.0 % Platelet Count 81 TH/MM3 Mean Platelet Volume 9.9 FL Neutrophils (%) (Auto) 67.2 % Lymphocytes (%) (Auto) 21.3 % Monocytes (%) (Auto) 10.4 % Eosinophils (%) (Auto) 1.0 % Basophils (%) (Auto) 0.1 % Neutrophils # (Auto) 3.4 TH/MM3 Lymphocytes # (Auto) 1.1 TH/MM3 Monocytes # (Auto) 0.5 TH/MM3 Eosinophils # (Auto) 0.1 TH/MM3 Basophils # (Auto) 0.0 TH/MM3 CBC Comment AUTO DIFF Differential Comment AUTO DIFF CONFIRMED Platelet Estimate LOW Platelet Morphology Comment NORMAL Sodium Level 141 MEQ/L Potassium Level 4.2 MEQ/L Chloride Level 109 MEQ/L Carbon Dioxide Level 22.1 MEQ/L Anion Gap 10 MEQ/L Blood Urea Nitrogen 18 MG/DL Creatinine 1.60 MG/DL Estimat Glomerular Filtration 43 ML/MIN Rate Random Glucose 148 MG/DL Calcium Level 7.6 MG/DL Total Bilirubin 0.8 MG/DL Aspartate Amino Transf 32 U/L (AST/SGOT) Alanine Aminotransferase 20 U/L (ALT/SGPT) Alkaline Phosphatase 79 U/L Total Protein 6.1 GM/DL Albumin 2.6 GM/DL Objective Remarks GENERAL: Elderly white male in no acute distress. HEENT: PERRLA, EOMI. No scleral icterus or conjunctival pallor. No lid lag or facial droop. CARDIOVASCULAR: Regular rate and rhythm. No obvious murmurs to auscultation. No chest tenderness to palpation. RESPIRATORY: No obvious rhonchi or wheezing. Clear to auscultation. Breath sounds equal bilaterally. GASTROINTESTINAL: Abdomen soft, mild generalized tenderness to palpation, nondistended. BS normal. MUSCULOSKELETAL: Extremities without clubbing, cyanosis, or edema. No obvious deformities. NEUROLOGICAL: Awake, alert and oriented x4. No focal neurologic deficits. Moving both upper and lower extremities spontaneously. Medications and IVs Current Medications Medications (Trade) Dose Ordered Sig/Zoie Route Start Time Stop Time Status Last Admin Sodium Chloride 2 ml 2 ml UNSCH PRN IV FLUSH 02/15/17 21:30 02/15/17 23:36 Piperacillin Sod/ Tazobactam Sod 50 ml @ 100 mls/hr Q6H IV 02/16/17 06:00 02/17/17 05:49 Pharmacy Profile Note 0 ml @ 0 mls/hr UNSCH OTHER 02/16/17 01:00 (NS 1000 ml Inj) 1,000 ml @ 100 mls/hr Q10H IV 02/16/17 00:47 02/16/17 22:04 (NS Flush) 2 ml UNSCH PRN IV FLUSH 02/16/17 01:00 (NS Flush) 2 ml BID IV FLUSH 02/16/17 09:00 02/17/17 08:57 (Zofran Inj) 4 mg Q6H PRN IVP 02/16/17 01:00 02/17/17 06:07 (Dulcolax Supp) 10 mg DAILY PRN RECTAL 02/16/17 01:00 (Tylenol) 650 mg Q6H PRN PO 02/16/17 01:00 ([place] 5-325 Mg) 1 tab Q4H PRN PO 02/16/17 01:00 (Morphine Inj) 2 mg Q3H PRN IV 02/16/17 01:00 02/17/17 05:50 (Ventolin Hfa Inh) 2 puff Q6H PRN INH 02/16/17 01:00 Metoprolol Tartrate 100 mg 100 mg BID PO 02/16/17 09:00 02/17/17 08:57 (Vancomycin Inj/ NS 500 ml Inj) 514 ml @ 250 mls/hr Q24H IV 02/17/17 02:00 02/17/17 01:35 Miscellaneous Information SPECIFIC LAB TO BE DRAWN:VANCOMY... ONCE ONCE .XX 02/18/17 01:45 02/18/17 01:46 (Restoril) 7.5 mg HS PRN PO 02/16/17 21:00 02/16/17 22:04 (Cepacol Extra Riri (Sugar Free)) 1 lozenge QID PRN BUCCAL 02/16/17 15:30 02/16/17 22:04 A/P Assessment and Plan 1. Duodenitis: acute onset of abdominal pain, nausea/vomiting/diarrhea x2 days w/ decreased PO intake. CT Abd/Pelvis w/ wall thickening of duodenal bald and second portion of duodenum, on Zosyn and Vancomycin given in ER, Diet as tolerated. 2. PNA: CXR w/ LLL infiltrate. Continue w/ IV Abx, Bronchodilator, Mucolytic , incentive spirometry. patient afebrile asymptomatic, continue present care and follow 3. COPD: Chronic Respiratory Failure. Stable. DuoNeb prn 4. Renal Insufficiency: Chronic. Creatinine 1.90 continue IV fluids, 5. DM II on sliding scale on hold Levemir due to not eating properly, Hemoglobin A1C. 6. CHF: Patient sees accounting manager cpa at the [facility]. Last echo was 8 months ago, he does not remember his ejection fraction. 7. Hypertension controlled. 8. Thrombocytopenia following. DVT Prophylaxis: SCD/Teds. Social work for d/c planning as needed. Discharge Planning Expected in one to two days. Minor Dooley MD Feb 17, 2017 13:19
[2017-02-17 16:00] VITALS: BP 168/76; PULSE 63; RESP 20; TEMP 98.9; O2SAT 96
[2017-02-17 20:00] VITALS: BP 160/72; PULSE 64; RESP 20; TEMP 98; O2SAT 96
[2017-02-17] MEDS: TEMAZEPAM 7.5 MG CAP PO PRN (21:34)
[2017-02-17] MEDS: SODIUM CHLOR 0.9% 1000 ML INJ 1,000 ML IV SCH (21:39)
[2017-02-17] MEDS: SODIUM CHLORIDE 0.9% FLUSH 10 ML FLUSH IV FLUSH PRN (21:43)
[2017-02-18] VITALS: BP 133/60; PULSE 57; RESP 20; TEMP 97; O2SAT 97
[2017-02-18] MEDS: PIPERACIL-TAZO 3.375 GM PREMIX 50 ML IV SCH ×4 (00:33→19:09)
[2017-02-18] MEDS ORDERED: PHARMACY ORDERED LAB ONE (01:45)
[2017-02-18] MEDS: VANCOMYCIN INJ 1,400 MG in SODIUM CHLORID 0.9% 500 ML INJ 500 ML IV SCH (02:19)
[2017-02-18 04:00] VITALS: BP 176/74; PULSE 66; RESP 20; TEMP 96.3; O2SAT 93
[2017-02-18] MEDS: ONDANSETRON HCL 4 MG/2 ML VIAL IVP PRN (05:34)
[2017-02-18 08:00] VITALS: BP 163/72; PULSE 58; RESP 20; TEMP 98.5; O2SAT 92
[2017-02-18] MEDS: INSULIN ASPART SUPPLEMENTAL SCALE SQ SCH ×4 (08:39→20:54)
[2017-02-18] MEDS: SODIUM CHLORIDE 0.9% FLUSH 10 ML FLUSH IV FLUSH SCH ×2 (09:00→20:55)
[2017-02-18] MEDS: METOPROLOL TARTRATE 100 MG TAB PO SCH ×2 (09:38→20:46)
[2017-02-18] MEDS: ARTIFICIAL TEARS OPTH SOLN 15 ML BTL EACH EYE SCH ×3 (10:00→20:57)
[2017-02-18 12:18] VITALS: BP 167/74; PULSE 55; RESP 20; TEMP 99.7; O2SAT 94
[2017-02-18] MEDS: CHOLESTYRAMINE 4 GM PACKET PO SCH ×2 (13:02→20:50)
[2017-02-18] MEDS: ASPIRIN EC 81 MG TABEC PO SCH (13:03)
[2017-02-18] MEDS: LOSARTAN 50 MG TAB PO SCH (13:03)
[2017-02-18] MEDS: FUROSEMIDE 20 MG TAB PO SCH (13:05)
--- NOTE | 2017-02-18 15:27 | HHI.PR ---
Subjective Remarks This is a pleasant 71 y/o Male who has Anxiety, Depression, Hyperlipidemia, Hepatitis C, CHF (Echo 05/21/12 w/ EF 50-55%), COPD and DM who presents to the ER with complaints of abdominal pain, nausea, vomiting and nonbloody diarrhea x2 days. Decreased PO intake secondary to symptoms. has Chronic Kidney disease, CXR with likely consolidation left lower lobe. CT Abd/Pelvis w/ wall thickening of duodenal bulb and second portion of duodenum , cirrhosis, mild splenomegaly, coronary artery calcification. Given Vancomycin and Zosyn, No blood cultures taken, patient stable afebrile, seen in his bedroom, continue with loose stools, will start on Questran, we are treating as Colitis, Seen in his bedroom discussed with nurse Chris the patient had loose stool once in am, continue Questran and get C Diff test now. Objective Vital Signs Date Time Temp Pulse Resp B/P Pulse Ox O2 Delivery O2 Flow Rate FiO2 02/18/17 12:18 99.7 55 20 167/74 94 02/18/17 08:00 98.5 58 20 163/72 92 02/18/17 04:00 96.3 66 20 176/74 93 02/18/17 00:00 97.0 57 20 133/60 97 02/17/17 20:00 98.0 64 20 160/72 96 02/17/17 16:00 98.9 63 20 168/76 96 I/O 02/17/17 02/17/17 02/17/17 02/18/17 02/18/17 02/18/17 07:00 15:00 23:00 07:00 15:00 23:00 Intake Total 750 ml 0 ml 550 ml 0 ml Balance 750 ml 0 ml 550 ml 0 ml Intake Oral 0 ml 550 ml 0 ml IV Total 750 ml # Voids 2 7 1 # Bowel Movements 1 2 Result Diagram: 02/17/1772302/17/17723 Imaging Last Impressions Chest X-Ray 02/15/172121 Signed Impressions: Service Date/Time: Wednesday, February 15, 2017 21:44 - CONCLUSION: Probable consolidative infiltrate lower lateral left lung. Anjum Lincoln MD Abdomen/Pelvis CT 02/15/172121 Signed Impressions: Service Date/Time: Wednesday, February 15, 2017 23:37 - CONCLUSION: 1. Wall thickening of the duodenal bulb and second portion of the duodenum without significant perienteric inflammation appreciated. Although nonspecific this finding could indicate inflammation of the duodenum. 2. Liver contour suspicious for cirrhosis. There is also mild splenomegaly. 3. Severe atherosclerotic disease and coronary artery calcification. Jorge Sahu MD Procedures No procedures performed. Other Results Laboratory Tests Test 02/15/17 02/15/17 02/17/17 02/18/17 21:00 21:46 07:24 02:00 Prothrombin Time 11.2 SEC Prothromb Time International 1.0 RATIO Ratio Activated Partial 28.2 SEC Thromboplast Time Magnesium Level 1.8 MG/DL Total Creatine Kinase 81 U/L Troponin I 0.04 NG/ML Lipase 80 U/L Lactic Acid Level 1.9 mmol/L White Blood Count 5.1 TH/MM3 Red Blood Count 3.84 MIL/MM3 Hemoglobin 11.4 GM/DL Hematocrit 35.2 % Mean Corpuscular Volume 91.8 FL Mean Corpuscular Hemoglobin 29.7 PG Mean Corpuscular Hemoglobin 32.4 % Concent Red Cell Distribution Width 13.0 % Platelet Count 81 TH/MM3 Mean Platelet Volume 9.9 FL Neutrophils (%) (Auto) 67.2 % Lymphocytes (%) (Auto) 21.3 % Monocytes (%) (Auto) 10.4 % Eosinophils (%) (Auto) 1.0 % Basophils (%) (Auto) 0.1 % Neutrophils # (Auto) 3.4 TH/MM3 Lymphocytes # (Auto) 1.1 TH/MM3 Monocytes # (Auto) 0.5 TH/MM3 Eosinophils # (Auto) 0.1 TH/MM3 Basophils # (Auto) 0.0 TH/MM3 CBC Comment AUTO DIFF Differential Comment AUTO DIFF CONFIRMED Platelet Estimate LOW Platelet Morphology Comment NORMAL Sodium Level 141 MEQ/L Potassium Level 4.2 MEQ/L Chloride Level 109 MEQ/L Carbon Dioxide Level 22.1 MEQ/L Anion Gap 10 MEQ/L Blood Urea Nitrogen 18 MG/DL Creatinine 1.60 MG/DL Estimat Glomerular Filtration 43 ML/MIN Rate Random Glucose 148 MG/DL Calcium Level 7.6 MG/DL Total Bilirubin 0.8 MG/DL Aspartate Amino Transf 32 U/L (AST/SGOT) Alanine Aminotransferase 20 U/L (ALT/SGPT) Alkaline Phosphatase 79 U/L Total Protein 6.1 GM/DL Albumin 2.6 GM/DL Vancomycin Level Trough 10.2 MCG/ML Objective Remarks GENERAL: No Acute distress. HEENT: PERRLA, EOMI. No scleral icterus or conjunctival pallor. No lid lag or facial droop. CARDIOVASCULAR: Regular rate and rhythm. No obvious murmurs to auscultation. No chest tenderness to palpation. RESPIRATORY: No obvious rhonchi or wheezing. Clear to auscultation. Breath sounds equal bilaterally. GASTROINTESTINAL: Abdomen soft, mild generalized tenderness to palpation, nondistended. BS normal. MUSCULOSKELETAL: Extremities without clubbing, cyanosis, or edema. No obvious deformities. NEUROLOGICAL: Awake, alert and oriented x4. No focal neurologic deficits. Moving both upper and lower extremities spontaneously. Medications and IVs Current Medications Medications (Trade) Dose Ordered Sig/Zoie Route Start Time Stop Time Status Last Admin Sodium Chloride 2 ml 2 ml UNSCH PRN IV FLUSH 02/15/17 21:30 02/17/17 21:43 Piperacillin Sod/ Tazobactam Sod 50 ml @ 100 mls/hr Q6H IV 02/16/17 06:00 02/18/17 13:03 Pharmacy Profile Note 0 ml @ 0 mls/hr UNSCH OTHER 02/16/17 01:00 (NS 1000 ml Inj) 1,000 ml @ 100 mls/hr Q10H IV 02/16/17 00:47 02/17/17 21:39 (NS Flush) 2 ml UNSCH PRN IV FLUSH 02/16/17 01:00 (NS Flush) 2 ml BID IV FLUSH 02/16/17 09:00 02/18/17 09:00 (Zofran Inj) 4 mg Q6H PRN IVP 02/16/17 01:00 02/18/17 05:34 (Dulcolax Supp) 10 mg DAILY PRN RECTAL 02/16/17 01:00 (Tylenol) 650 mg Q6H PRN PO 02/16/17 01:00 ([place] 5-325 Mg) 1 tab Q4H PRN PO 02/16/17 01:00 (Morphine Inj) 2 mg Q3H PRN IV 02/16/17 01:00 02/17/17 22:59 (Ventolin Hfa Inh) 2 puff Q6H PRN INH 02/16/17 01:00 (Lopressor) 100 mg BID PO 02/16/17 09:00 02/18/17 09:38 (Restoril) 7.5 mg HS PRN PO 02/16/17 21:00 02/17/17 21:34 Benzocaine/ Menthol 1 lozenge 1 lozenge QID PRN BUCCAL 02/16/17 15:30 02/16/17 22:04 (Vancomycin Inj/ NS 500 ml Inj) 517.5 ml @ 250 mls/hr Q24H IV 02/19/17 02:00 Miscellaneous Information SPECIFIC LAB TO BE DRAWN:VANCOMYCIN TROUGH DATE TO... ONCE ONCE .XX 02/21/17 01:45 02/21/17 01:46 (Ecotrin Ec) 81 mg DAILY PO 02/18/17 10:00 02/18/17 13:03 (Lasix) 20 mg DAILY PO 02/18/17 10:00 02/18/17 13:05 (Cozaar) 100 mg DAILY PO 02/18/17 10:00 02/18/17 13:03 (Tears Naturale Opth Soln) 1 drop Q6H EACH EYE 02/18/17 10:00 02/18/17 10:00 (Questran 4 Gm Pkt) 4 gm Q8HR PO 02/18/17 14:00 02/18/17 13:02 A/P Assessment and Plan 1. Duodenitis: acute onset of abdominal pain, nausea/vomiting/diarrhea x2 days w/ decreased PO intake. CT Abd/Pelvis w/ wall thickening of duodenal bald and second portion of duodenum, on Zosyn and Vancomycin given in ER, Diet as tolerated. had another bowel movement as loose continue Questran asked for C Diff Test and Removed Vancomycin. 2. PNA: CXR w/ LLL infiltrate. Continue w/ IV Abx, Bronchodilator, Mucolytic , incentive spirometry. patient afebrile asymptomatic, discontinued Vancomycin. following CXR tomorrow. 3. COPD: Chronic Respiratory Failure. Stable. DuoNeb prn 4. Renal Insufficiency: Chronic. Creatinine trending down to 1.6 Improving slowly 5. DM II on sliding scale on hold Levemir due to not eating properly, Asked for Hemoglobin A1C. 6. CHF: Patient sees charging crane operator at the [place]. Last echo was 8 months ago, he does not remember his ejection fraction. 7. Hypertension Uncontrolled today will continue present care by now. 8. Thrombocytopenia following. DVT Prophylaxis: SCD/Teds. Social work for d/c planning as needed. Discharge Planning Expected in one to two days. Minor Dooley MD Feb 18, 2017 15:27
[2017-02-18 16:00] VITALS: BP 174/79; PULSE 57; RESP 20; TEMP 99.7; O2SAT 94
[2017-02-18 20:26] VITALS: BP 180/75; PULSE 74; RESP 17; TEMP 97.5; O2SAT 95
--- NOTE | 2017-02-18 21:02 | RADRPT ---
EXAM DATE/TIME: 02/18/2017 20:11 [facility] COMPARISON: No previous studies available for comparison. INDICATIONS : Difficulty breathing and epigastric pain. RADIATION DOSE: 9.86 CTDIvol (mGy) MEDICAL HISTORY : Hypertension. Chronic obstructive pulmonary disease. Diabetes mellitus type 2. Hepatitis C SURGICAL HISTORY : None. ENCOUNTER: Subsequent ACUITY: 2 days PAIN SCALE: 4/10 LOCATION: Bilateral lower chest TECHNIQUE: Volumetric scanning of the chest was performed. Using automated exposure control and adjustment of t he mA and/or kV according to patient size, radiation dose was kept as low as reasonably achievable to obtain optimal diagnostic quality images. FINDINGS: LUNGS: Fibrotic changes in the peripheral one third of both lungs without focal areas of consolidation. No nodular opacities seen and no focal areas of consolidation. PLEURAE: Is a small left pleural effusion measuring 1 cm in thickness. MEDIASTINUM: Several mildly prominent middle mediastinal lymph nodes measure up to 1.9 cm; the 2 largest have a de monstrable fatty hilum. Coronary artery calcifications. Evidence of prior CABG. AXILLAE: Within normal limits. No lymphadenopathy. MUSCULOSKELETAL: Within normal limits for patient age. MISCELLANEOUS: The visualized upper abdominal organs demonstrate no acute abnormality. CONCLUSION: Moderate severity pulmonary fibrosis throughout both lungs and small left pleural effusion. Anjum Lincoln MD on February 18, 2017 at 20:58 Board Certified Radiologist. This report was verified electronically.
[2017-02-18] MEDS: SODIUM CHLOR 0.9% 1000 ML INJ 1,000 ML IV SCH (22:47)
[2017-02-19] MEDS: TEMAZEPAM 7.5 MG CAP PO PRN (00:40)
[2017-02-19] MEDS: PIPERACIL-TAZO 3.375 GM PREMIX 50 ML IV SCH ×2 (00:41→06:12)
[2017-02-19] MEDS: MORPHINE SULFATE 4 MG/ML INJ IV PRN (00:49)
[2017-02-19 01:08] VITALS: BP 175/83; PULSE 53; RESP 17; TEMP 95.5; O2SAT 96
[2017-02-19 01:52] LABS: C. DIFF EPI 027 PRESUMPTIVE NEGATIVE (NEGATIVE); C. DIFF TOXIN PCR NEGATIVE (NEGATIVE)
[2017-02-19] MEDS ORDERED: VANCOMYCIN INJ 1,750 MG in SODIUM CHLORID 0.9% 500 ML INJ 500 ML IV SCH (02:00)
[2017-02-19] MEDS: ARTIFICIAL TEARS OPTH SOLN 15 ML BTL EACH EYE SCH ×3 (04:00→16:00)
[2017-02-19 05:48] VITALS: BP 165/72; PULSE 66; RESP 17; TEMP 97.3; O2SAT 96
[2017-02-19] MEDS: CHOLESTYRAMINE 4 GM PACKET PO SCH ×2 (06:12→15:07)
[2017-02-19] MEDS: INSULIN ASPART SUPPLEMENTAL SCALE SQ SCH ×3 (06:16→16:00)
[2017-02-19 08:00] VITALS: BP 188/81; PULSE 64; RESP 21; TEMP 97.4; O2SAT 95
[2017-02-19] MEDS: SODIUM CHLOR 0.9% 1000 ML INJ 1,000 ML IV SCH (08:47)
[2017-02-19] MEDS: SODIUM CHLORIDE 0.9% FLUSH 10 ML FLUSH IV FLUSH SCH (09:00)
[2017-02-19] MEDS: LOSARTAN 50 MG TAB PO SCH (09:38)
[2017-02-19] MEDS: ASPIRIN EC 81 MG TABEC PO SCH (09:38)
[2017-02-19] MEDS: FUROSEMIDE 20 MG TAB PO SCH (09:38)
[2017-02-19] MEDS: METOPROLOL TARTRATE 100 MG TAB PO SCH (09:38)
[2017-02-19] MEDS ORDERED: hydrALAZINE HCL 20 MG/ML VIAL IV PUSH PRN (11:00)
[2017-02-19] MEDS ORDERED: cloNIDine HCL 0.1 MG TAB PO PRN (11:30)
[2017-02-19 12:00] VITALS: BP 172/76; PULSE 57; RESP 19; TEMP 97; O2SAT 95
--- NOTE | 2017-02-19 12:34 | HHI.PR ---
Subjective Remarks This is a pleasant 71 y/o Male who has Anxiety, Depression, Hyperlipidemia, Hepatitis C, CHF (Echo 05/21/12 w/ EF 50-55%), COPD and DM who presents to the ER with complaints of abdominal pain, nausea, vomiting and nonbloody diarrhea x2 days. Decreased PO intake secondary to symptoms. has Chronic Kidney disease, CXR with likely consolidation left lower lobe. CT Abd/Pelvis w/ wall thickening of duodenal bulb and second portion of duodenum , cirrhosis, mild splenomegaly, coronary artery calcification. Given Vancomycin and Zosyn, No blood cultures taken, patient stable afebrile, seen in his bedroom, continue with loose stools, will start on Questran, we are treating as Colitis, Seen in his bedroom discussed with nurse Chris the patient had loose stool once in am, continue Questran and get C Diff test now. 02/19 Seen in the room in the presence of nurse Miss Peng, his renal function has worsened discontinued BEATRIS inhibitor and Lasix, started on Clonidine and Hydralazine, he states he has GI specialist following in [place] but do not remember about having Endoscopy in recent years know he had Hepatitic C treatment, and was discontinued due to Elevated Liver enzymes while on treatment. Objective Vital Signs Date Time Temp Pulse Resp B/P Pulse Ox O2 Delivery O2 Flow Rate FiO2 02/19/17 08:00 97.4 64 21 188/81 95 02/19/17 05:48 97.3 66 17 165/72 96 02/19/17 01:08 95.5 53 17 175/83 96 02/18/17 20:26 97.5 74 17 180/75 95 02/18/17 16:00 99.7 57 20 174/79 94 I/O 02/18/17 02/18/17 02/18/17 02/19/17 02/19/17 02/19/17 07:00 15:00 23:00 07:00 15:00 23:00 Intake Total 750 ml 1160 ml Balance 750 ml 1160 ml Intake Oral 750 ml 360 ml IV Total 800 ml # Voids 1 3 4 # Bowel Movements 2 Result Diagram: 02/17/17 0724 02/19/17 0656 Imaging Last Impressions Chest CT 02/18/17 0000 Signed Impressions: Service Date/Time: Saturday, February 18, 2017 20:11 - CONCLUSION: Moderate severity pulmonary fibrosis throughout both lungs and small left pleural effusion. Anjum Lincoln MD Chest X-Ray 02/15/172121 Signed Impressions: Service Date/Time: Wednesday, February 15, 2017 21:44 - CONCLUSION: Probable consolidative infiltrate lower lateral left lung. Anjum Lincoln MD Abdomen/Pelvis CT 02/15/172121 Signed Impressions: Service Date/Time: Wednesday, February 15, 2017 23:37 - CONCLUSION: 1. Wall thickening of the duodenal bulb and second portion of the duodenum without significant perienteric inflammation appreciated. Although nonspecific this finding could indicate inflammation of the duodenum. 2. Liver contour suspicious for cirrhosis. There is also mild splenomegaly. 3. Severe atherosclerotic disease and coronary artery calcification. Jorge Sahu MD Procedures No procedures performed. Other Results Laboratory Tests Test 02/15/17 02/15/17 02/17/17 02/18/17 21:00 21:46 07:24 02:00 Prothrombin Time 11.2 SEC Prothromb Time International 1.0 RATIO Ratio Activated Partial 28.2 SEC Thromboplast Time Magnesium Level 1.8 MG/DL Total Creatine Kinase 81 U/L Troponin I 0.04 NG/ML Lipase 80 U/L Lactic Acid Level 1.9 mmol/L White Blood Count 5.1 TH/MM3 Red Blood Count 3.84 MIL/MM3 Hemoglobin 11.4 GM/DL Hematocrit 35.2 % Mean Corpuscular Volume 91.8 FL Mean Corpuscular Hemoglobin 29.7 PG Mean Corpuscular Hemoglobin 32.4 % Concent Red Cell Distribution Width 13.0 % Platelet Count 81 TH/MM3 Mean Platelet Volume 9.9 FL Neutrophils (%) (Auto) 67.2 % Lymphocytes (%) (Auto) 21.3 % Monocytes (%) (Auto) 10.4 % Eosinophils (%) (Auto) 1.0 % Basophils (%) (Auto) 0.1 % Neutrophils # (Auto) 3.4 TH/MM3 Lymphocytes # (Auto) 1.1 TH/MM3 Monocytes # (Auto) 0.5 TH/MM3 Eosinophils # (Auto) 0.1 TH/MM3 Basophils # (Auto) 0.0 TH/MM3 CBC Comment AUTO DIFF Differential Comment AUTO DIFF CONFIRMED Platelet Estimate LOW Platelet Morphology Comment NORMAL Sodium Level 141 MEQ/L Potassium Level 4.2 MEQ/L Chloride Level 109 MEQ/L Carbon Dioxide Level 22.1 MEQ/L Anion Gap 10 MEQ/L Blood Urea Nitrogen 18 MG/DL Random Glucose 148 MG/DL Calcium Level 7.6 MG/DL Total Bilirubin 0.8 MG/DL Aspartate Amino Transf 32 U/L (AST/SGOT) Alanine Aminotransferase 20 U/L (ALT/SGPT) Alkaline Phosphatase 79 U/L Total Protein 6.1 GM/DL Albumin 2.6 GM/DL Vancomycin Level Trough 10.2 MCG/ML Test 02/18/17 02/19/17 23:00 06:56 Stool C. difficile Toxin (PCR) NEGATIVE Stl C. difficile Toxin PRESUMPTIVE Epiderm 027 NEGATIVE Creatinine 4.18 MG/DL Estimat Glomerular Filtration 14 ML/MIN Rate Objective Remarks GENERAL: No Acute distress. HEENT: PERRLA, EOMI. No scleral icterus or conjunctival pallor. No lid lag or facial droop. CARDIOVASCULAR: Regular rate and rhythm. No obvious murmurs to auscultation. No chest tenderness to palpation. RESPIRATORY: No obvious rhonchi or wheezing. Clear to auscultation. Breath sounds equal bilaterally. GASTROINTESTINAL: Abdomen soft, mild generalized tenderness to palpation, nondistended. BS normal. MUSCULOSKELETAL: Extremities without clubbing, cyanosis, or edema. No obvious deformities. NEUROLOGICAL: Awake, alert and oriented x4. No focal neurologic deficits. Moving both upper and lower extremities spontaneously. Medications and IVs Current Medications Medications (Trade) Dose Ordered Sig/Zoie Route Start Time Stop Time Status Last Admin Sodium Chloride 2 ml 2 ml UNSCH PRN IV FLUSH 02/15/17 21:30 02/17/17 21:43 (NS 1000 ml Inj) 1,000 ml @ 100 mls/hr Q10H IV 02/16/17 00:47 02/18/17 22:47 (NS Flush) 2 ml UNSCH PRN IV FLUSH 02/16/17 01:00 (NS Flush) 2 ml BID IV FLUSH 02/16/17 09:00 02/18/17 20:55 (Zofran Inj) 4 mg Q6H PRN IVP 02/16/17 01:00 02/18/17 05:34 (Dulcolax Supp) 10 mg DAILY PRN RECTAL 02/16/17 01:00 (Tylenol) 650 mg Q6H PRN PO 02/16/17 01:00 (Filer 5-325 Mg) 1 tab Q4H PRN PO 02/16/17 01:00 02/18/17 20:48 (Morphine Inj) 2 mg Q3H PRN IV 02/16/17 01:00 02/19/17 00:49 (Ventolin Hfa Inh) 2 puff Q6H PRN INH 02/16/17 01:00 (Lopressor) 100 mg BID PO 02/16/17 09:00 02/19/17 09:38 (Restoril) 7.5 mg HS PRN PO 02/16/17 21:00 02/19/17 00:40 (Cepacol Extra Riri (Sugar Free)) 1 lozenge QID PRN BUCCAL 02/16/17 15:30 02/16/17 22:04 (Ecotrin Ec) 81 mg DAILY PO 02/18/17 10:00 02/19/17 09:38 (Lasix) 20 mg DAILY PO 02/18/17 10:00 02/19/17 09:38 (Cozaar) 100 mg DAILY PO 02/18/17 10:00 Hold 02/19/17 09:38 (Tears Naturale Opth Soln) 1 drop Q6H EACH EYE 02/18/17 10:00 02/19/17 09:37 (Questran 4 Gm Pkt) 4 gm Q8HR PO 02/18/17 14:00 02/19/17 06:12 (Apresoline) 25 mg Q8HR PO 02/19/17 14:00 Clonidine 0.1 mg 0.1 mg Q6H PRN PO 02/19/17 11:30 (Zosyn 2.25 Gm Premix) 50 ml @ 100 mls/hr Q8H IV 02/19/17 14:00 A/P Assessment and Plan 1. Duodenitis: acute onset of abdominal pain, nausea/vomiting/diarrhea x2 days w/ decreased PO intake. CT Abd/Pelvis w/ wall thickening of duodenal bald and second portion of duodenum, on Zosyn and Vancomycin Discontinued Vancomycin 02/18/17 given in ER, Diet as tolerated. Improving his bowel movements, so not associated to his actual worsening renal function, but states he is not eating properly, has liquid diet but not using it, will leave him on his actual diet and asked for GI specialist consult, he does not remember if had Endoscopy at least on recent years. 2. PNA: CXR w/ LLL infiltrate. Continue w/ IV Abx, Bronchodilator, Mucolytic , incentive spirometry. patient afebrile asymptomatic, Discontinued Vancomycin 02/18/17 following CXR today. 3. COPD: Chronic Respiratory Failure. Stable. DuoNeb prn 4. Acute Kidney Injury on Chronic Kidney disease III, Creatinine yesterday was 1.6 today went to 4.18 probable related to Vancomycin and also he is not eating well, was off IV fluids during the night, recommended to continue IV fluids and will get new BMP and CBC stat. on hold her BEATRIS inhibitor and Lasix started on Hydralazine and Clonidine as needed. Nephrology specialist consulted. 5. DM II on sliding scale on hold Levemir due to not eating properly, Not yet Hemoglobin A1C in EMR, 6. 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 Last echo was 8 months ago, he does not remember his ejection fraction. 7. Hypertension Uncontrolled discontinued BEATRIS inhibitor and Lasix and started on Clonidine and Hydralazine 8. Thrombocytopenia following. CBC stat DVT Prophylaxis: SCD/Teds. encourage activity Social work for d/c planning as needed. Discharge Planning Expected in one to two days. Minor Dooley MD Feb 19, 2017 12:34
[2017-02-19 13:36] LABS: AUTOMATED NEUTROPHIL # 2.7 TH/MM3 (1.8-7.7); BASOPHIL % 0.3 % (0.0-2.0); EOSINOPHIL % 1.1 % (0.0-4.0); HEMATOCRIT 34.8 % (39.0-51.0); LYMPHOCYTE # 0.8 TH/MM3 (1.0-4.8); MEAN CORPUSCULAR HEMOGLOBIN 29.6 PG (27.0-34.0); MEAN CORPUSCULAR HGB CONC 32.9 % (32.0-36.0); MONO % 8.9 % (0.0-8.0); NEUT % 69.7 % (16.0-70.0); PLATELET COUNT 86 TH/MM3 (150-450); RED BLOOD COUNT 3.86 MIL/MM3 (4.50-5.90); RED CELL DISTRIBUTION WIDTH 12.8 % (11.6-17.2); WHITE BLOOD COUNT 3.9 TH/MM3 (4.0-11.0)
[2017-02-19 13:41] LABS: HEMO FLAGS AUTO DIFF
[2017-02-19] MEDS ORDERED: PIPERACIL-TAZO 2.25 GM PREMIX 50 ML IV SCH (14:00)
[2017-02-19] MEDS ORDERED: hydrALAZINE HCL 25 MG TAB PO SCH (14:00)
[2017-02-19 14:09] LABS: BICARBONATE 23.5 MEQ/L (21.0-32.0); POTASSIUM 3.8 MEQ/L (3.5-5.1)
[2017-02-19 14:17] LABS: SCAN/DIFF AUTO DIFF CONFIRMED
[2017-02-19] MEDS ORDERED: SODIUM CHLORID 0.9% 500 ML INJ 500 ML IV ONE (14:30)
--- NOTE | 2017-02-19 14:31 | PD.CONS ---
HPI Service Nephrology Consult Requested By Dr. Mcguire Reason for Consult Acute renal failure upon chronic kidney disease [facility] History of Present Illness Patient is 71-year-old male with history of nausea vomiting, diarrhea for last several days so he said that he has no relief in the diarrhea when 3 times since the past our with watery diarrhea, patient the is complaining about getting IV fluid stated the as his IV in the arm is not working, he is unable to drink as he feel abdominal pain and gets nauseated easily, his creatinine was stable 2 days ago at 1.6 however today's reading was 4.18, he states he has a chronic kidney disease he has diabetes and hepatitis C and 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 His urine output has declined as well. Review of Systems Constitutional: COMPLAINS OF: Fatigue Gastrointestinal: COMPLAINS OF: Abdominal pain, Diarrhea, Nausea, Vomiting Psychiatric: COMPLAINS OF: Anxiety Past Family Social History Allergies: Coded Allergies: Gabapentin (Verified Adverse Reaction, Intermediate, Cramping, 02/15/17) 10 yrs ago, Lisinopril (Verified Adverse Reaction, Intermediate, Cramping, 02/15/17) Past Medical History Anxiety disorder Cirrhosis of the liver Hepatitis C Diabetes Hypertension Chronic kidney disease Peripheral neuropathy Coronary artery disease Hyperlipidemia COPD Past Surgical History Coronary artery bypass grafting 5 Right elbow surgery for ulnar nerve entrapment Reported Medications Reported Meds & Active Scripts Active Reported Oxycodone Hydrochloride (Oxycodone HCl) 5 Mg Cap 5 Mg PO Q8HR Metoprolol Tartrate 100 Mg Tab 100 Mg PO BID Losartan (Losartan Potassium) 100 Mg Tab 100 Mg PO DAILY Ketoconazole Topical 2% Cream 1 Applic TOPICAL DAILY Lantus Inj (Insulin Glargine) 1,000 Unit/10 Ml Vial 40 Units SQ BID Novolog Flexpen Inj (Insulin Aspart) 300 Unit/3 Ml Pen 5 Units SQ DIRECTED Imiquimod Topical (Imiquimod) 5% Cream 1 Applic TOPICAL 3 TIMES PER WEEK Eq Gentle Lubricant (Hypromellose (Ophth)) 0.3 % Mike 1 Drop EACH EYE Q6HR Furosemide 20 Mg Tab 20 Mg PO DAILY Ergocalciferol 50,000 Unit Cap 50,000 Units PO Q30D Diphenhydramine (Diphenhydramine HCl) 25 Mg Cap 25 Mg PO HS PRN Aspirin 81 (Aspirin) 81 Mg Tabdr 81 Mg PO DAILY Proair Hfa 8.5 GM Inh (Albuterol Sulfate) 90 Mcg/Act Aer 2 Puff INH Q6H PRN 108 mcg/actuation Tanzeum 4-Pack Inj (Albiglutide) 30 Mg Pfpen 30 Mg SQ Q7D Active Ordered Medications Current Medications Medications (Trade) Dose Ordered Sig/Zoie Route Start Time Stop Time Status Last Admin Sodium Chloride 2 ml 2 ml UNSCH PRN IV FLUSH 02/15/17 21:30 02/17/17 21:43 (NS 1000 ml Inj) 1,000 ml @ 100 mls/hr Q10H IV 02/16/17 00:47 02/18/17 22:47 (NS Flush) 2 ml UNSCH PRN IV FLUSH 02/16/17 01:00 (NS Flush) 2 ml BID IV FLUSH 02/16/17 09:00 02/18/17 20:55 (Zofran Inj) 4 mg Q6H PRN IVP 02/16/17 01:00 02/18/17 05:34 (Dulcolax Supp) 10 mg DAILY PRN RECTAL 02/16/17 01:00 (Tylenol) 650 mg Q6H PRN PO 02/16/17 01:00 ([place] 5-325 Mg) 1 tab Q4H PRN PO 02/16/17 01:00 02/18/17 20:48 (Morphine Inj) 2 mg Q3H PRN IV 02/16/17 01:00 02/19/17 00:49 (Ventolin Hfa Inh) 2 puff Q6H PRN INH 02/16/17 01:00 (Lopressor) 100 mg BID PO 02/16/17 09:00 02/19/17 09:38 (Restoril) 7.5 mg HS PRN PO 02/16/17 21:00 02/19/17 00:40 (Cepacol Extra Riri (Sugar Free)) 1 lozenge QID PRN BUCCAL 02/16/17 15:30 02/16/17 22:04 (Ecotrin Ec) 81 mg DAILY PO 02/18/17 10:00 02/19/17 09:38 (Lasix) 20 mg DAILY PO 02/18/17 10:00 02/19/17 09:38 (Cozaar) 100 mg DAILY PO 02/18/17 10:00 Hold 02/19/17 09:38 (Tears Naturale Opth Soln) 1 drop Q6H EACH EYE 02/18/17 10:00 02/19/17 09:37 (Questran 4 Gm Pkt) 4 gm Q8HR PO 02/18/17 14:00 02/19/17 06:12 (Apresoline) 25 mg Q8HR PO 02/19/17 14:00 Clonidine 0.1 mg 0.1 mg Q6H PRN PO 02/19/17 11:30 (Zosyn 2.25 Gm Premix) 50 ml @ 100 mls/hr Q8H IV 02/19/17 14:00 (Ativan) 0.5 mg Q8H PRN PO 02/19/17 15:00 Family History Diabetes runs in the family Social History He is a and denies smoking or alcohol use Physical Exam Vital Signs Vital Signs Date Time Temp Pulse Resp B/P Pulse Ox O2 Delivery O2 Flow Rate FiO2 02/19/17 12:00 97.0 57 19 172/76 95 02/19/17 08:00 97.4 64 21 188/81 95 02/19/17 05:48 97.3 66 17 165/72 96 02/19/17 01:08 95.5 53 17 175/83 96 02/18/17 20:26 97.5 74 17 180/75 95 02/18/17 16:00 99.7 57 20 174/79 94 Physical Exam GENERAL: Well-nourished, well-developed patient. SKIN: Warm and dry. HEAD: Normocephalic. EYES: No scleral icterus. No injection or drainage. NECK: Supple, trachea midline. No JVD or lymphadenopathy. CARDIOVASCULAR: Regular rate and rhythm without murmurs, gallops, or rubs. RESPIRATORY: Breath sounds equal bilaterally. No accessory muscle use. GASTROINTESTINAL: Abdomen soft, tender epigastric area, nondistended. EXTREMITIES: No cyanosis, or edema. NEUROLOGICAL: Awake, alert, and oriented x 3. Non-focal. Laboratory Laboratory Tests Test 02/18/17 02/19/17 02/19/17 23:00 06:56 13:16 Stool C. difficile Toxin (PCR) NEGATIVE Stl C. difficile Toxin PRESUMPTIVE Epiderm 027 NEGATIVE Creatinine 4.18 1.29 Estimat Glomerular Filtration 14 55 Rate White Blood Count 3.9 Red Blood Count 3.86 Hemoglobin 11.4 Hematocrit 34.8 Mean Corpuscular Volume 90.0 Mean Corpuscular Hemoglobin 29.6 Mean Corpuscular Hemoglobin 32.9 Concent Red Cell Distribution Width 12.8 Platelet Count 86 Mean Platelet Volume 9.2 Neutrophils (%) (Auto) 69.7 Lymphocytes (%) (Auto) 20.0 Monocytes (%) (Auto) 8.9 Eosinophils (%) (Auto) 1.1 Basophils (%) (Auto) 0.3 Neutrophils # (Auto) 2.7 Lymphocytes # (Auto) 0.8 Monocytes # (Auto) 0.4 Eosinophils # (Auto) 0.0 Basophils # (Auto) 0.0 CBC Comment AUTO DIFF Differential Comment AUTO DIFF CONFIRMED Sodium Level 140 Potassium Level 3.8 Chloride Level 107 Carbon Dioxide Level 23.5 Anion Gap 10 Blood Urea Nitrogen 10 Random Glucose 188 Calcium Level 8.0 Result Diagram: 02/19/17 1316 02/19/17 1316 Imaging Last Impressions Chest CT 02/18/17 0000 Signed Impressions: Service Date/Time: Saturday, February 18, 2017 20:11 - CONCLUSION: Moderate severity pulmonary fibrosis throughout both lungs and small left pleural effusion. Anjum Lincoln MD Chest X-Ray 02/15/172121 Signed Impressions: Service Date/Time: Wednesday, February 15, 2017 21:44 - CONCLUSION: Probable consolidative infiltrate lower lateral left lung. Anjum Lincoln MD Abdomen/Pelvis CT 02/15/172121 Signed Impressions: Service Date/Time: Wednesday, February 15, 2017 23:37 - CONCLUSION: 1. Wall thickening of the duodenal bulb and second portion of the duodenum without significant perienteric inflammation appreciated. Although nonspecific this finding could indicate inflammation of the duodenum. 2. Liver contour suspicious for cirrhosis. There is also mild splenomegaly. 3. Severe atherosclerotic disease and coronary artery calcification. Jorge Sahu MD Assessment and Plan Problem List: (1) Acute renal failure Plan: He needs to be hydrated his severely dehydrated to losing water through GI tract and this is not compensated as he has poor IV, he is refusing to restart IV fluids as he states that the [place] is poor and the flow was interrupted several times, I discussed with him about placing a PICC line, we can give him IVF followed with normal saline at 125 cc an hour to rehydrate his kidney He agreed to the plan I will check a urine sodium and creatinine ratio I saw repeat Creatinine is 1.2 so probably has erroneous results. (2) CKD (chronic kidney disease) stage 3, GFR 30-59 ml/min Plan: Likely due to diabetes (3) Diarrhea Plan: C. difficile was negative (4) DM (diabetes mellitus) Plan: Continue to monitor (5) Duodenitis Plan: He did receive vancomycin, Zosyn (6) COPD (chronic obstructive pulmonary disease) Plan: Continue to monitor Problem Qualifiers (1) Acute renal failure: Qualified Code: N17.9 - Acute renal failure, unspecified acute renal failure type Varinder Forbes MD Feb 19, 2017 14:31
[2017-02-19] MEDS ORDERED: LORazepam 0.5 MG TAB PO PRN (15:00)
[2017-02-19 16:00] VITALS: BP 204/94; PULSE 75; RESP 20; TEMP 98.4; O2SAT 97
[2017-02-19 16:11] LABS: HEMOGLOBIN Ao 81.4 %; HEMOGLOBIN F 1.3 %; HEMOGLOBIN LA1C 2.4 %; HEMOGLOBIN P3 4.6 %
[2017-02-21] MEDS ORDERED: PHARMACY ORDERED LAB ONE (01:45)
--- NOTE | 2017-02-26 07:38 | HHI.DS ---
Discharge Summary Admission Date Feb 16, 2017 at 00:43 Discharge Date: Feb 19, 2017 Admitting Diagnosis Duodenitis; L PNA (1) Duodenitis ICD Code: K29.80 Diagnosis: Principal (2) PNA (pneumonia) ICD Code: J18.9 Diagnosis: Principal (3) COPD (chronic obstructive pulmonary disease) ICD Code: J44.9 Diagnosis: Secondary (4) Renal insufficiency ICD Code: N28.9 Diagnosis: Principal (5) DM (diabetes mellitus) ICD Code: E11.9 Diagnosis: Secondary Procedures No procedures performed to the patient Brief History - From Admission This is a 71-year-old male with a PMH of Anxiety, Depression, HTN, Hyperlipidemia, Hepatitis C, CHF (Echo 05/21/12 w/ EF 50-55%), COPD and DM who presents to the ER with complaints of abdominal pain, nausea, vomiting and nonbloody diarrhea x2 days. Decreased PO intake secondary to symptoms. Reports subjective fevers/chills. Denies sick contacts. On arrival, BP 152/74 , HR 100, O2 sat 96% on RA, Afebrile. WBC normal. Platelets 115, previously 149 on 09/07/14. Creatinine 1.90, previously 1.9 and 09/07/14. Lactic Acid 1.9. LFTs normal. Troponin 0.04. INR 1.0. CXR with likely consolidation left lower lobe. CT Abd/Pelvis w/ wall thickening of duodenal bulb and second portion of duodenum, cirrhosis, mild splenomegaly, coronary artery calcification. S/p Zosyn IV in ER. Imaging Last Impressions Chest CT 02/18/17 0000 Signed Impressions: Service Date/Time: Saturday, February 18, 2017 20:11 - CONCLUSION: Moderate severity pulmonary fibrosis throughout both lungs and small left pleural effusion. Anjum Lincoln MD Chest X-Ray 02/15/172121 Signed Impressions: Service Date/Time: Wednesday, February 15, 2017 21:44 - CONCLUSION: Probable consolidative infiltrate lower lateral left lung. Anjum Lincoln MD Abdomen/Pelvis CT 02/15/172121 Signed Impressions: Service Date/Time: Wednesday, February 15, 2017 23:37 - CONCLUSION: 1. Wall thickening of the duodenal bulb and second portion of the duodenum without significant perienteric inflammation appreciated. Although nonspecific this finding could indicate inflammation of the duodenum. 2. Liver contour suspicious for cirrhosis. There is also mild splenomegaly. 3. Severe atherosclerotic disease and coronary artery calcification. Jorge Sahu MD PE at Discharge The patient was evaluated early by me but he decided to leave the Hospital AMA today 02/19/17 the Patient was evaluated in AM but not on discharge he decided to leave [facility] Course This is a pleasant 71 y/o Male who has Anxiety, Depression, Hyperlipidemia, Hepatitis C, CHF (Echo 05/21/12 w/ EF 50-55%), COPD and DM who presents to the ER with complaints of abdominal pain, nausea, vomiting and nonbloody diarrhea x2 days. Decreased PO intake secondary to symptoms. has Chronic Kidney disease, CXR with likely consolidation left lower lobe. CT Abd/Pelvis w/ wall thickening of duodenal bulb and second portion of duodenum , cirrhosis, mild splenomegaly, coronary artery calcification. Given Vancomycin and Zosyn, No blood cultures taken, patient stable afebrile, seen in his bedroom, continue with loose stools, will start on Questran, we are treating as Colitis, Seen in his bedroom discussed with nurse George Chris the patient had loose stool once in am, continue Questran and get C Diff test now. 02/19 Seen in the room in the presence of nurse Miss Peng, his renal function has worsened discontinued BEATRIS inhibitor and Lasix, started on Clonidine and Hydralazine, he states he has GI specialist following in [place] but do not remember about having Endoscopy in recent years know he had Hepatitic C treatment, and was discontinued due to Elevated Liver enzymes while on treatment. Assessment and Plan 1. Duodenitis: acute onset of abdominal pain, nausea/vomiting/diarrhea x2 days w/ decreased PO intake. CT Abd/Pelvis w/ wall thickening of duodenal bald and second portion of duodenum, on Zosyn and Vancomycin Discontinued Vancomycin 02/18/17 given in ER, Diet as tolerated. Improving his bowel movements, so not associated to his actual worsening renal function, but states he is not eating properly, has liquid diet but not using it, will leave him on his actual diet and asked for GI specialist consult, he does not remember if had Endoscopy at least on recent years. 2. PNA: CXR w/ LLL infiltrate. Continue w/ IV Abx, Bronchodilator, Mucolytic , incentive spirometry. patient afebrile asymptomatic, Discontinued Vancomycin 02/18/17 following CXR today. 3. COPD: Chronic Respiratory Failure. Stable. DuoNeb prn 4. Acute Kidney Injury on Chronic Kidney disease III, Creatinine yesterday was 1.6 today went to 4.18 probable related to Vancomycin and also he is not eating well, was off IV fluids during the night, recommended to continue IV fluids and will get new BMP and CBC stat. on hold her BEATRIS inhibitor and Lasix started on Hydralazine and Clonidine as needed. Nephrology specialist consulted. 5. DM II on sliding scale on hold Levemir due to not eating properly, Not yet Hemoglobin A1C in EMR, 6. 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 Last echo was 8 months ago, he does not remember his ejection fraction. 7. Hypertension Uncontrolled discontinued BEATRIS inhibitor and Lasix and started on Clonidine and Hydralazine 8. Thrombocytopenia following. CBC stat DVT Prophylaxis: SCD/Teds. encourage activity Social work for d/c planning as needed. Discharge Planning Expected in one to two days. The patient was evaluated early by me but he decided to leave the Hospital AMA today 02/19/17 Pt Condition on Discharge: Deteriorating Discharge Disposition: Discharge Home Discharge Time: <= 30 minutes Minor Dooley MD Feb 26, 2017 07:38 The patient was evaluated early by me but he decided to leave the Hospital AMA today 02/19/17 Pt Condition on Discharge: Deteriorating Discharge Time: <= 30 minutes Minor Dooley MD Feb 26, 2017 07:38
== END 2017-02-19 17:45 | disposition left against medical advice (07) | DRG 391 ==
LOC: NEPC 20:57 → NEDA 02-16 00:43 → N05B 02-16 03:05
PROVIDERS: ADMIT Family Medicine; ATTEND Family Medicine
DX: K29.80 Duodenitis without bleeding (principal); J18.9 Pneumonia, unspecified organism; N17.9 Acute kidney failure, unspecified; D69.6 Thrombocytopenia, unspecified; E11.22 Type 2 diabetes mellitus with diabetic chronic kidney disease; I13.0 Hypertensive heart and chronic kidney disease with heart failure and stage 1 through stage 4 chronic kidney disease, or unspecified chronic kidney disease; J96.10 Chronic respiratory failure, unspecified whether with hypoxia or hypercapnia; I50.9 Heart failure, unspecified; J44.0 Chronic obstructive pulmonary disease with (acute) lower respiratory infection; N18.3 Chronic kidney disease, stage 3 (moderate); T36.8X5A Adverse effect of other systemic antibiotics, initial encounter; D64.9 Anemia, unspecified; B19.20 Unspecified viral hepatitis C without hepatic coma; E78.5 Hyperlipidemia, unspecified; E78.00 Pure hypercholesterolemia, unspecified; E86.0 Dehydration; Z79.4 Long term (current) use of insulin; J45.909 Unspecified asthma, uncomplicated; I25.10 Atherosclerotic heart disease of native coronary artery without angina pectoris; K74.60 Unspecified cirrhosis of liver; Z95.1 Presence of aortocoronary bypass graft; F32.9 Major depressive disorder, single episode, unspecified
CPT/HCPCS: 71010; 71250; 74176; 80048; 80053; 80202; 82550; 82565; 82948; 83036; 83605; 83690; 83735; 84484; 85025; 85610; 85730; 87493; 93005; 96361; 96374; 96376; J1815; J2270; J2405; J2543; J3370; J7030; J7040; Q9963